=== PATIENT | male | born 1985 | race Caucasian/White ===

== ENCOUNTER 2020-05-17 16:17 | Emergency (ER) | payer OTHER ==
[2020-05-17] MEDS ORDERED: DIPH/PERTUSS(ACELL)/TETANUS VAC/PF 0.5 ML SYR (>=10YO) IM ONE (16:58)
--- NOTE | 2020-05-17 17:04 | ER Document Report ---
ED Medical Screen (RME) - General Chief Complaint: Laceration Stated Complaint: FALL/LACERATION Time Seen by Provider: 05/17/20 16:55 - HPI Notes: 05/17/20 16:59 35-year-old male presents to the emergency room for evaluation of a laceration to his left forearm from accidentally tripping, landing on the corner of the wall with his left forearm approximately 1 hour ago. Unsure of his last tetanus. Patient is still actively bleeding. Denies any numbness or tingling to his hand or arms. Denies any other area of injury. Denies hitting his head or change in level consciousness. Reports pain is 0 out of 5. Denies any chest pain or shortness of breath I have greeted and performed a rapid initial assessment of this patient. A comprehensive ED assessment and evaluation of the patient, analysis of test results and completion of the medical decision making process will be conducted by additional ED providers. PHYSICAL EXAMINATION: GENERAL: Well-appearing, well-nourished and in no acute distress. CV: s1, s2 regular LUNGS: No respiratory distress Musculoskeletal: Normal range of motion NEUROLOGICAL: Normal speech, normal gait. SKIN: Warm, Dry, normal turgor, no rashes or lesions noted. Forearm with approx imately 8 cm linear laceration along left forearm on lateral aspect. Tack Cleaner +2 in bilateral upper extremities equally. Full motor and sensory function of bilateral upper extremities equally. Physical Exam - Vital signs Vitals: Temp Pulse Resp BP Pulse Ox 98.4 F 84 20 146/94 H 99 05/17/20 16:22 05/17/20 16:22 05/17/20 16:22 05/17/20 16:22 05/17/20 16:22 Course - Vital Signs Vital signs: Temp Pulse Resp BP Pulse Ox 98.4 F 84 20 146/94 H 99 05/17/20 16:22 05/17/20 16:22 05/17/20 16:22 05/17/20 16:22 05/17/20 16:22
[2020-05-17] MEDS ORDERED: LIDOCAINE 1%/EPINEPHRINE INJ 20 ML VIAL INJ ONE (20:09)
--- NOTE | 2020-05-17 20:10 | ER Document Report ---
ED Wound - General Chief Complaint: Laceration Stated Complaint: FALL/LACERATION Time Seen by Provider: 05/17/20 16:55 Notes: Patient is a 35 year old male that comes emergency department for chief complaint of laceration to the left proximal forearm just past the elbow. He states that he is remodeling his house and he tripped, landed and struck the corner of the wall with his forearm causing a long laceration. He states that he could not stop the bleeding with paper towels at home so he came in for evaluation. He is not up-to-date on his tetanus. He denies any other injuries from the fall. He denies any other complaints or any daily medications. - Related Data Allergies/Adverse Reactions: No Known Allergies Allergy (Unverified 05/17/20 17:02) Home Medications: atorvastatin Past Medical History - General Information source: Patient - Social History Smoking Status: Never Smoker Chew tobacco use (# tins/day): No Frequency of alcohol use: Rare Drug Abuse: None Lives with: Family Family History: Reviewed & Not Pertinent - Immunizations Immunizations up to date: No Hx Diphtheria, Pertussis, Tetanus Vaccination: Yes Review of Systems - Review of Systems Constitutional: No symptoms reported EENT: No symptoms reported Cardiovascular: No symptoms reported Respiratory: No symptoms reported Gastrointestinal: No symptoms reported Genitourinary: No symptoms reported Male Genitourinary: No symptoms reported Musculoskeletal: See HPI Skin: See HPI Hematologic/Lymphatic: No symptoms reported Neurological/Psychological: No symptoms reported Physical Exam - Vital signs Vitals: Temp Pulse Resp BP Pulse Ox 98.4 F 84 20 146/94 H 99 05/17/20 16:22 05/17/20 16:22 05/17/20 16:22 05/17/20 16:22 05/17/20 16:22 - Notes Notes: GENERAL: Alert, interacts well. No acute distress. HEAD: Normocephalic, atraumatic. EYES: Pupils equal, round, and reactive to light. Extraocular movements intact. ENT: Oral mucosa moist, tongue midline. Oropharynx unremarkable. Airway patent. LUNGS: Clear to auscultation bilaterally, no wheezes, rales, or rhonchi. No respiratory distress. Non-tender chest wall. HEART: Regular rate and rhythm. No murmur ABDOMEN: Soft, non-tender. Non-distended. EXTREMITIES: There is a large 6.5 cm laceration that is full-thickness, vertical, and linear extending from just past the left elbow up the proximal forearm over the extensor surface. There is no bony tenderness, there is normal range of motion at the elbow, wrist, normal hand, wrist, elbow exam otherwise. Normal capillary refill and sensation, normal distal pulses. Unremarkable otherwise. BACK: no cervical, thoracic, lumbar midline tenderness. No saddle anesthesia, normal distal neurovascular exam. Moves all extremities in full range of motion. NEUROLOGICAL: Alert and oriented x3. Normal speech. Cranial nerves II through XII grossly intact. Strength 5/5 in all extremities. PSYCH: Normal affect, normal mood. SKIN: Warm, dry, normal turgor. No rashes or lesions noted. Course - Re-evaluation Re-evalutation: Patient does have a large laceration, this was cleaned thoroughly, repaired, dressed. No bony tenderness, no tenderness over the joints, no neurovascular deficits, no other injuries noted. Discussed care, follow-up, return cautions. Patient states understanding and agreement. - Vital Signs Vital signs: Temp Pulse Resp BP Pulse Ox 97.9 F 84 16 139/80 H 96 05/17/20 21:17 05/17/20 21:17 05/17/20 21:17 05/17/20 21:17 05/17/20 21:17 Procedures - Laceration/Wound Repair Left forearm Wound length (cm): 6.5 Wound's Depth, Shape: Linear Laceration pre-procedure: Sterile PPE donned, Sterile drapes applied, Shur-Clens applied Anesthetic type: 1% Lidocaine w/epi Volume Anesthetic (mLs): 8 Wound explored: Clean, No foreign body removed Irrigated w/ Saline (mLs): 80 Wound Debrided: Minimal Wound Repaired With: Sutures Suture Size/Type: 4:0, Ethilon Number of Sutures: 15 - Mixed simple and vertical mattress Post-procedure wound care: Sterile dressing applied Post-procedure NV exam normal: Yes Complications: No Discharge - Discharge Clinical Impression: Laceration of left forearm Qualifiers: Encounter type: initial encounter Qualified Code(s): S51.812A - Laceration without foreign body of left forearm, initial encounter Condition: Stable Disposition: HOME, SELF-CARE Instructions: Tetanus Immunization Given ([facility]) Additional Instructions: The wound was repaired with sutures. Keep clean, clean with soap and water, dab dry, avoid soaking or scrubbing. You can apply thin film of topical antibiotic. Sutures need to be removed in about 10 days at a medical facility. Return sooner for any concerning symptoms including signs of infection such as developing pain, swelling, redness, discolored discharge, fever, or any other concerning symptoms.
[2020-05-17 21:18] VITALS: BP 139/80
== END 2020-05-17 21:17 | disposition home or self-care (01) ==
LOC: ER 16:17
DX: S51.812A Laceration without foreign body of left forearm, initial encounter (principal); W10.9XXA Fall (on) (from) unspecified stairs and steps, initial encounter; Y93.H3 Activity, building and construction; Y92.009 Unspecified place in unspecified non-institutional (private) residence as the place of occurrence of the external cause; Z23 Encounter for immunization
CPT/HCPCS: 99282; 90471; 90715; 12002; J3490